=== PATIENT | male | born 1995 | race Caucasian/White ===

== ENCOUNTER 2017-08-12 17:41 | Emergency (ER) | payer OTHER ==
[~2017-08-12] VITALS: Ht 172.7 cm; Wt 81.6 kg
[2017-08-12 18:00] VITALS: BP 124/79
[2017-08-12] MEDS ORDERED: IBUPROFEN 800 MG TAB PO ONE (19:15)
== END 2017-08-12 20:33 | disposition home or self-care (01) ==
LOC: ER 17:41
DX: M25.552 Pain in left hip (principal)
CPT/HCPCS: 73502